=== PATIENT | male | born 2005 | race Caucasian/White ===

== ENCOUNTER 2025-01-31 09:05 | Outpatient (REF) | payer OTHER, SELFPAY ==
--- NOTE | ~2025-01-31 | US_ITS ---
EXAMINATION: US ABDOMEN HISTORY: EPIGASTRIC PAIN, GERD TECHNIQUE: Real-time grayscale ultrasound imaging of the abdomen was performed and images were reviewed. COMPARISON: There are no prior studies for comparison. FINDINGS: Liver: The right lobe of the liver measures 14.5 cm in size. The left lobe of the liver measures 8.1 cm in size. The liver demonstrates normal homogeneous echotexture. No focal mass or intrahepatic biliary ductal dilatation is identified. There is normal hepatopedal flow in the portal vein. Gallbladder and biliary tree: There are multiple polyps noted measuring up to 4 mm in size. The gallbladder is otherwise unremarkable, without evidence of calculi, wall thickening, or pericholecystic fluid. There is no sonographic Tijerina sign. The common bile duct is normal in caliber measuring 2 mm. Kidneys: The right kidney measures 10.7 cm in length. The left kidney measures 11.4 cm in length. The kidneys are unremarkable, without evidence of masses, hydronephrosis, or calculi. Pancreas: The pancreatic head, neck, and body are unremarkable. The pancreatic tail is obscured by bowel gas. Spleen: The spleen is normal in size and contour, measuring 9.2 cm in length. Abdominal aorta and inferior vena cava: The visualized portions of the abdominal aorta and inferior vena cava are normal in caliber. There is no free fluid in the abdomen. US/US abdomen complete IMPRESSION: Gallbladder polyps measuring up to 4 mm in size. Otherwise unremarkable abdominal ultrasound. Electronically signed by: Bayron Jane MD 01/31/2025 01:00 PM EDT
== END 2025-01-31 09:06 | disposition home or self-care (01) ==
LOC: HO.UMASIMG 09:05
PROVIDERS: Visit Provider Family Medicine
DX: K21.9 Gastro-esophageal reflux disease without esophagitis (principal)
CPT/HCPCS: 76700

== ENCOUNTER → 2025-01-31 12:00 | Outpatient (BNV) | payer OTHER, SELFPAY | PROVIDERS: Visit Provider Radiology Diagnostic Radiology | DX: R10.13 Epigastric pain (principal); K82.4 Cholesterolosis of gallbladder | CPT/HCPCS: 76700 ==

== ENCOUNTER 2025-08-22 08:39 | Outpatient (REF) | payer OTHER, SELFPAY ==
--- NOTE | ~2025-08-22 | US_ITS ---
EXAMINATION: US ABDOMEN LIMITED HISTORY: 6 MONTH F/U GB POLYPS TECHNIQUE: Real-time grayscale ultrasound imaging of the gallbladder was performed and images were reviewed. COMPARISON: Comparison is made with the prior examination dated 01/31/2025. FINDINGS: Again seen are 2 gallbladder polyps measuring 5 x 3 x 4 mm and 5 x 2 x 5 mm, similar in size to the prior study. The gallbladder is otherwise unremarkable, without evidence of calculi, wall thickening, or pericholecystic fluid. There is no sonographic Tijerina sign. The common bile duct is normal in caliber measuring 1 mm. US/US abdomen limited IMPRESSION: Stable subcentimeter gallbladder polyps. Electronically signed by: Bayron Jane MD 08/22/2025 11:00 AM [facility]
== END 2025-08-22 08:40 | disposition home or self-care (01) ==
LOC: HO.UMASIMG 08:39
PROVIDERS: Visit Provider Family Medicine
DX: K82.4 Cholesterolosis of gallbladder (principal); D50.9 Iron deficiency anemia, unspecified
CPT/HCPCS: 76705

== ENCOUNTER → 2025-08-22 10:02 | Outpatient (BNV) | payer OTHER, SELFPAY | PROVIDERS: Visit Provider Radiology Diagnostic Radiology | DX: K82.4 Cholesterolosis of gallbladder (principal) | CPT/HCPCS: 76705 ==